=== PATIENT | female | born 1990 | race African-American/Black ===

== ENCOUNTER 2018-02-26 22:02 | Emergency (ER) | payer SELFPAY ==
[~2018-02-26] VITALS: Ht 165.1 cm; Wt 137.9 kg
[2018-02-26 22:08] VITALS: BP 176/120; Ht 165.1 cm; Wt 137.9 kg
== END 2018-02-26 23:30 | disposition left against medical advice (07) ==
LOC: ED 22:02
DX: Z53.21 Procedure and treatment not carried out due to patient leaving prior to being seen by health care provider (principal)